=== PATIENT | female | born 1995 | race Caucasian/White ===

== ENCOUNTER 2018-10-24 11:50 | Inpatient (IN) | payer MEDICAID, SELFPAY ==
[2018-10-24 10:35] VITALS: BMI 40.1
--- NOTE | 2018-10-24 12:19 | HP.PCM_ITS ---
- Problem List (1) Active labor at term Status: Acute (2) Abnormal glucose measurement Status: Acute (3) Iron deficiency anemia Status: Acute History Date of Admission: 10/24/18 Final ANGELA: 10/25/18 Gestational age: 39 Weeks and 6 Days History of this : This is a 23 year-old, G 1, P 0, at 39 weeks gestational age who presented to the office this morning with contractions. Traction started this morning around 6 AM and are every 7 minutes and painful. She also noticed brown discharge. No leaking of fluid or bright red bleeding. Good movement. Allergies No Known Allergies Allergy (Verified 10/24/18 10:36) Home Medications: Home Medications Ferrous Sulfate [Iron] 325 mg PO 10/24/18 Vits [Prenatabs FA] 1 tablet PO DAILY 10/24/18 Smoking Status: Never smoker Number of Fetus(es): 1 Heart Tracin/mod zak/+accels/no decels TOCO Analysis: ctx's q 4-5 min History Past Pregnancies: Past Pregnancies Delivery Date Name GA/Weeks Outcome Route Weight Infant Gender Labor Length Anesthesia Delivery Location Provider FOB Labs: GBS neg, GC/CT neg, 1 hr GTT elevated at 147, 3 hr GTT nml, Hgb 11.1, sequential screen neg, syphilis NR, RI, HepB neg, HIV NR, Rh pos Expected Delivery Method: Spontaneous Vaginal Review of Systems Gynecological: Reports: - - +Ctx's and brown discharge. No LOF, BRB. Good FM Physical Exam General: No apparent distress, - - Uncomfortable and breathing through ctx's HEENT: Atraumatic Lungs: - - No increased resp effort Abdomen: Soft, Non Tender, Gravid Extremities:: No edema Neurological: Neuro grossly intact STRIPPER PRELIMINARY: Normal external genitalia Estimated gestational size: Appropriate for gestational size Presentation: Cephalic Cervix Dilation (cm): 3 Station: -2 Effacement (%): 80 Assessment/Plan All Active Problems Active labor at term (Acute) Abnormal glucose measurement (Acute) Iron deficiency anemia (Acute) This is a 23 year-old, G1, P0, at weeks gestational age who is admitted for active labor. - Cvx changed from 1 to /-2 - GBS negative - Pt considering epidural - Routine labs and intrapartum care
[2018-10-24 12:41] LABS: Hematocrit 41.1 % (37-47); Hemoglobin 13.5 g/dl (12.0-15.0); Mean Corp Hgb Conc 32.8 g/gl (32-36); Mean Corpuscular Hgb 27.3 pg (27.0-32.0); Mean Platelet Vol. 10.7 fl (6.2-12.0); Platelet Count 181 K/mm3 (150-450); RBC Distribution Width SD 45.9 fl (35.1-43.9); Red Blood Count 4.95 M/mm3 (4.2-5.4); Scan Indicated on CBC? Y/N NO; White Blood Count 10.7 K/mm3 (4.4-11.0)
[2018-10-24] MEDS: Lactated Ringers 1,000 ML 50 ML IV ×2 (12:45→14:08)
--- NOTE | 2018-10-24 16:20 | PCM.PN.BLA ---
Progress Note Patient was rechecked by RN about 1 hour ago, and remained 2-3cm dilated/unchanged. [place] not picking up ctx's well, but RN reports pt has been sleeping. At bedside to re-assess. Cvx still remains unchanged at this time. FHT reactive and reassuring, and toco w/ ctx's q 5 min apart. Discussed possible early labor with patient. Will d/c home. Reviewed return precautions with patient and she is agreeable to this plan.
--- NOTE | 2018-10-24 16:25 | PN_ITS ---
Progress Note Patient was rechecked by RN about 1 hour ago, and remained 2-3cm dilated/unchanged. [place] not picking up ctx's well, but RN reports pt has been sl eeping. At bedside to re-assess. Cvx still remains unchanged at this time. FHT reactive and reassuring, and toco w/ ctx's q 5 min apart. Discussed possible early labor with patient. Will d/c home. Reviewed return precautions with patient and she is agreeable to this plan.
[2018-10-24] MEDS: Acetaminophen 325 MG Tablet 650 MG PO (16:45)
[2018-10-24] MEDS: Zolpidem Tartrate 5 MG Tablet PO (16:45)
== END 2018-10-24 17:10 | disposition home or self-care (01) | DRG 566 ==
LOC: WPOUT 11:51
PROVIDERS: Admitting Provider Obstetrics & Gynecology; Referring Provider Obstetrics & Gynecology; Visit Provider Obstetrics & Gynecology
DX: O62.9 Abnormality of forces of labor, unspecified (principal); O99.810 Abnormal glucose complicating pregnancy; O99.013 Anemia complicating pregnancy, third trimester; D50.9 Iron deficiency anemia, unspecified; Z3A.39 39 weeks gestation of pregnancy
CPT/HCPCS: 85027; 86850; 86900; J7120

== ENCOUNTER 2018-10-24 20:20 | Outpatient (CLI) | payer MEDICAID, SELFPAY ==
[2018-10-24 10:35] VITALS: BMI 40.1
[2018-10-24 21:16] VITALS: BMI 40.1
[2018-10-24 23:10] VITALS: RESP 18
--- NOTE | 2018-10-25 08:05 | OB.TRI.NOTE ---
- Problem List (1) Uterine contractions Status: Acute History of Present Illness Date of Service: 10/24/18 Was patient seen by the physician?: No Reason For Visit: R/O LABOR Date of Service: 10/24/18 Final ANGELA: 10/25/18 Gestational age: 40 Weeks and 0 Days History of Present Illness: 23 y/o who presented at 39w6d with contractions. No LOF, VB. +FM. Allergies No Known Allergies Allergy (Verified 10/24/18 21:17) Physical Exam Vitals: Vital Signs Resp 18 10/24/18 23:10 NST - FHR Rate Baby A FHR Category:: Category I Uterine Activity:: Ctx's q 3-7 min Impression/Plan 23 y/o who presented at 39w6d with contractions for r/o labor. - Cvx 3.5 cm from 3 cm earlier. After 2 hours cvx remained 3.5 cm - FHT reactive and reassuring - Ctx's were intermittently spacing apart - Pt offered Nubain for pain relief but she declined - Pt likely in early labor. Offered to stay for recheck again in 2 hours or d/c home with return precautions. Pt was discharged home
== END 2018-10-24 23:10 | disposition home or self-care (01) ==
LOC: WPOUT 21:15 → WP 21:15
PROVIDERS: Referring Provider Obstetrics & Gynecology; Visit Provider Obstetrics & Gynecology
DX: Z34.03 Encounter for supervision of normal first pregnancy, third trimester (principal)
CPT/HCPCS: 59025; 59050; 99218; G0378

== ENCOUNTER 2018-10-25 12:17 | Inpatient (IN) | payer MEDICAID, SELFPAY ==
[2018-10-24 21:16] VITALS: BMI 40.1
[2018-10-25 12:39] VITALS: BMI 39.0
[2018-10-25] MEDS: Lactated Ringers 1,000 ML 50 ML IV ×4 (12:55→19:32)
[2018-10-25 13:09] LABS: Absolute Neutrophil Count 11.5 X10^3/uL (2.0-7.7); Eosinophil# 0.01 X10^3/uL; Eosinophils% 0.1 % (0-5); Hematocrit 39.8 % (37-47); Hemoglobin 13.3 g/dl (12.0-15.0); Lymphocyte % 7.6 % (19-41); Mean Corp Hgb Conc 33.4 g/gl (32-36); Mean Corpuscular Hgb 27.7 pg (27.0-32.0); Mean Corpuscular Volume 82.7 fL (81-99); Mean Platelet Vol. 10.3 fl (6.2-12.0); Monocyte# 0.75 X10^3/uL; Monocyte% 5.7 % (0-10); Neutrophil # 11.45 X10^3/uL (2.7-7.7); Neutrophil % 86.4 % (47-70); Platelet Count 173 K/mm3 (150-450); RBC Distribution Width CV 14.8 % (11.6-14.6); RBC Distribution Width SD 44.7 fl (35.1-43.9); Red Blood Count 4.81 M/mm3 (4.2-5.4); White Blood Count 13.2 K/mm3 (4.4-11.0)
[2018-10-25] MEDS: Nalbuphine 10 MG/ML Ampul IV (13:09)
[2018-10-25 13:11] LABS: POSITIVE COUNT NO; POSITIVE DIFFERENTIAL NO; POSITIVE MORPHOLOGY NO
[2018-10-25] MEDS: fentaNYL-bupivacaine (epidural) 100 ML BAG EPIDURAL ×3 (14:08→23:29)
[2018-10-25] MEDS: Mag Hydrox/Al Hydrox/Simeth 30 ML UDC PO (17:33)
[2018-10-25] MEDS: Oxytocin 30 units/NS 500 ml 30 UNITS/500 ML IV.SOLN IV (18:18)
--- NOTE | 2018-10-25 18:20 | PCM.HP.OB ---
History Date of Admission: 10/24/18 Final ANGELA: 10/25/18 Final ANGELA Source: US <20 weeks Gestational age: 40 Weeks and 0 Days History of this : This is a 23 year-old, 1 para 0 at 40 weeks gestation with EDC of 10/25/2018 by first trimester ultrasound alone presents complaining of spontaneous rupture of membranes and contractions. She was in prodromal labor all day yesterday and presented today in labor with spontaneous rupture of membranes. She had no gross vaginal bleeding. She has had good movement. was complicated to date by obesity with maternal BMI of 39, iron deficiency anemia, and she had an abnormal 1 hour glucose tolerance test but she had an normal 3-hour test.. Allergies No Known Allergies Allergy (Verified 10/24/18 21:17) Home Medications: Home Medications Ferrous Sulfate [Iron] 325 mg PO 10/24/18 Vits [Prenatabs FA] 1 tablet PO DAILY 10/24/18 Smoking Status: Former smoker Alcohol: None Number of Fetus(es): 1 Heart Tracing: Normal baseline, minimal to moderate variability. Intermittent accelerations. Some late decelerations. TOCO Analysis: [place] shows irregular contractions History Past Pregnancies: Past Pregnancies Delivery Date Name GA/Weeks Outcome Route Weight Gender Labor Length Anesthesia Delivery Location Provider FOB Expected Infant Delivery Method: Spontaneous Vaginal Review of Systems Constitutional: Denies: Chills, Fever Cardiovascular: Denies: Chest Pain Respiratory: Denies: Cough Gastrointestinal: Denies: Abdominal Pain Skin: Denies: Rash Physical Exam General: Alert, Cooperative, No apparent distress Cardiovascular: Regular rate Lungs: Normal air movement Abdomen: Soft, Non-Distended, Gravid, Appropriate for Gestational Age Extremities:: Other - 1+ edema 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 Estimated weight is less than 4500 g clinically, pelvis clinically adequate to expect vaginal delivery. Patient will receive Pitocin augmentation of labor at this point. Patient has epidural and pain control is adequate at this time..
[2018-10-25] MEDS: Acetaminophen 325 MG Tablet PO (19:33)
--- NOTE | 2018-10-25 21:34 | PCM.PN.BLA ---
Progress Note Patient comfortable but feels pressure w/ ctxs. Temp 100.7 w/ maternal and tachycardia. Will initiate antibiotics. cont. expectant management
[2018-10-25] MEDS: Ondansetron 4 MG/2 ML Vial IV (22:52)
[2018-10-26] VITALS (7 sets, daily range): BP systolic 106–127; BP diastolic 63–74; PULSE 95–125; RESP 16–17; TEMP 36.2–37.9; O2SAT 95
--- NOTE | 2018-10-26 01:42 | PLAC_PTH ---
PATIENT: SHAISTA VANN LOC: [facility] U#:[id number] AGE/SX: 23/ ROOM: [facility]008 RE10/25/[address]: Dr. Doreen Ordaz MD : 1995 BED: 1 DIS: 10/28/2018 SPEC #: [id number] RECD: 10/26/18 02:17 STATUS: TEAGAN KEMAL #: [id number] CODEY: 10/26/18 01:[address]: Doreen Ordaz DEPT: SURGICAL PATHOLOGY RECD BY: Jignesh Webb ENTERED: 10/26/18 08:12 SP TYPE: PLACENTA OTHR DR: No Primary Care Phys Tissues: Placenta, NOS Procedures: Surgery Specimen Level V HEADER OPERATION: Vaginal delivery PRE-OP DIAGNOSIS: Vaginal delivery TISSUE SUBMITTED: Placenta MICROSCOPIC DIAGNOSIS Placenta: Placental disc - third trimester placenta (514 gm). - Focal acute vasculitis of subamniotic blood vessels. - A peripheral area of infarction (2 cm in greatest dimension). - A central area of intraparenchymal hemorrhage (1.5 cm in greatest dimension). Membranes - acute chorioamnionitis. Umbilical cord - three blood vessels and acute funisitis. SJ:syed 10/30/18 MICROSCOPIC DESCRIPTION Slides are reviewed. GROSS DESCRIPTION SPECIMEN: PLACENTA / CLINICAL INFORMATION: A. Weight: 3.759 kg B. Gestational Age: 40 weeks C. Sex: Male PLACENTAL WEIGHT (POST FIXATION): 514 gm PLACENTAL DIMENSIONS: 17 x 17 x 4 cm PLACENTAL SHAPE: Usual ovoid PLACENTAL WEIGHT FOR GESTATIONAL AGE: Within 10-99th percentile MEMBRANES - Present A. Insertion: Marginal B. Site of rupture from edge: 5 cm from edge of placental disc C. Color of membrane: Nguyen-greenish consistent with meconium staining D. Abnormalities: None UMBILICAL CORD - Present A. Color: Nguyen-torres B. Insertion: Paracentral C. Length: 24 cm D. Diameter: 1.5 cm E. Number of vessels: Three F. Abnormalities: None PLACENTAL DISC - Present A. Color of surface: Nguyen-torres B. surface abnormalities: None C. Maternal cotyledons: Intact with minimal tears D. Attached retro placental clot: No clot E. Cut surface: Dark red and spongy F. Lesions: Sections reveal a peripheral nguyen indurated area measuring 2 cm in greatest dimension and one central, nguyen, indurated and hemorrhagic area measuring 1.5 cm in greatest dimension. G. Separate clot: Absent SECTIONS SUBMITTED: 1. Membrane roll 2. Cord, maternal end 3. Cord, end 4. Placental disc, and maternal surfaces, peripheral lesion 5. Placental disc, and maternal surfaces, central lesion 6. Placental disc, and maternal surfaces ASHU:syed 10/27/18 TC:2 CPT: 91536
[2018-10-26] MEDS: Oxytocin 30 units/NS 500 ml 30 UNITS/500 ML IV.SOLN 334 UNITS IV (01:46)
--- NOTE | 2018-10-26 02:06 | OP.PCM_ITS ---
Vaginal Delivery Maternal Presentation: Active Labor Amniotic Membrane Rupture Type: Spontaneous at home Amniotic Fluid Description: Thick meconium - clear, then progressed to Final ANGELA: 10/25/18 Gestational age: 40 Weeks and 1 Days [place] doctor who attended delivery (if requested by OB): Zoraida Hooks Date of Procedure: 10/26/18 Pre-Operative Diagnosis: labor, chorioamnionitis Post-Operative Diagnosis: same Surgery/ Procedure Performed: Spontaneous Vaginal Delivery Type of Anesthesia: Epidural Description of Procedure: A vigorous male was delivered [MAAME] over a first-degree perineal laceration. The remainder the was delivered with maternal pushing and gentle traction only in less than 15 seconds. The Pitocin infusion was initiated for active management of the third stage. The cord was clamped and cut [after 1 minute]. The infant was attended to by the waiting nursing staff. The placenta was delivered spontaneously and intact. The cervix and vagina were intact. The first-degree perineal laceration was repaired with 3-0 Vicryl re peat suture. sponge and needle counts were correct. A vaginal sweep was completed by me. Presentation: MAAME Placental Delivery Description: Spontaneous Placenta Disposition: Sent to Pathology Cord Vessel Description: 3 Vessels Cord Gases drawn per routine: ABG, VBG Cord Entanglement: None Drain: Galvan to straight drain - removed before delivery Estimated Blood Loss: 300 A gender: Male (1 minute): 8 (5 minute): 9 Episiotomy Description: None Laceration: 1st degree - perineal Medications given after delivery: IV Pitocin Complications: None
[2018-10-26] MEDS: Oxytocin 30 units/NS 500 ml 30 UNITS/500 ML IV.SOLN 167 UNITS IV (02:15)
--- NOTE | 2018-10-26 11:02 | NURSING ---
Patient HR 118. Asymptomatic.
[2018-10-26 11:37] LABS: Absolute Lymphocyte Count 1.45 X10^3/ul (0.83-4.51); Absolute Neutrophil Count 17.9 X10^3/uL (2.0-7.7); Basophil# 0.01 X10^3/uL; Differential Indicated SCAN CRITERIA MET; Eosinophil# 0.03 X10^3/uL; Eosinophils% 0.1 % (0-5); Hematocrit 35.6 % (37-47); Hemoglobin 11.7 g/dl (12.0-15.0); Lymphocyte # 1.45 X10^3/ul (4.0); Lymphocyte % 6.8 % (19-41); Mean Corp Hgb Conc 32.9 g/gl (32-36); Mean Corpuscular Hgb 27.5 pg (27.0-32.0); Mean Corpuscular Volume 83.6 fL (81-99); Mean Platelet Vol. 10.1 fl (6.2-12.0); Neutrophil # 17.91 X10^3/uL (2.7-7.7); Neutrophil % 84.8 % (47-70); POSITIVE COUNT NO; POSITIVE DIFFERENTIAL YES; POSITIVE MORPHOLOGY NO; Platelet Count 179 K/mm3 (150-450); RBC Distribution Width CV 15.1 % (11.6-14.6); RBC Distribution Width SD 46.1 fl (35.1-43.9); Red Blood Count 4.26 M/mm3 (4.2-5.4); White Blood Count 21.2 K/mm3 (4.4-11.0)
[2018-10-26 12:11] LABS: Differential Comment SCANNED
[2018-10-26] MEDS: Acetaminophen 500 MG Tablet 1000 MG PO (12:27)
[2018-10-26] MEDS: Senna/Docusate Sodium 1 Tablet PO (12:27)
[2018-10-26] MEDS: 0.9% Saline Lock 10 ML Syringe IV ×3 (13:46→22:30)
[2018-10-26] MEDS: Naproxen 250 MG Tablet PO (18:28)
[2018-10-27 02:53] VITALS: BP 115/68; PULSE 82; RESP 16; TEMP 36.1; O2SAT 98
[2018-10-27] MEDS: 0.9% Saline Lock 10 ML Syringe IV (06:05)
[2018-10-27 07:59] VITALS: BP 113/74; PULSE 88; RESP 16; TEMP 36.1; O2SAT 95
--- NOTE | 2018-10-27 08:09 | PN.OBGYN_ITS ---
Subjective: Patient is doing well this morning. Tolerating regular diet without nausea or vomiting. Ambulating and voiding without difficulty. Denies lightheadedness, dizziness, chest pain, shortness of breath, leg pain. Denies any fevers or chills. Breast-feeding with some difficulty, seen. - Physical Exam General: Alert, - - NAD, comfortable HEENT: Atraumatic Lungs: - - No increased resp effort Abdomen: Soft, - - ATTP, FF@U-1 Extremities: No Calf Tenderness Skin: No rashes Neurological: Neuro grossly intact Psych/Mental Status: Normal Affect, Appropriate Vital Signs Temp Pulse Resp BP Pulse Ox 96.9 F L 88 16 113/74 95 10/27/18 07:59 10/27/18 07:59 10/27/18 07:59 10/27/18 07:59 10/27/18 07:59 Oxygen Delivery Method Room Air Weight: 213 lb 6.4 oz Body Mass Index (BMI) 39.0 Intake and Output for Last 24 Hours 10/25/18 10/26/18 10/27/18 23:59 23:59 23:59 Intake Total 800 / 800 1770 / 1770 Output Total 300 / 300 700 / 700 Balance 500 / 500 1070 / 1070 Laboratory Tests Past 24 Hrs 10/26/18 11:30 WBC 21.2 H RBC 4.26 Hgb 11.7 L Hct 35.6 L MCV 83.6 MCH 27.5 MCHC 32.9 RDW 15.1 H RDW Differential 46.1 H Plt Count 179 MPV 10.1 Immature Gran % (Auto) 0.300 Neut % (Auto) 84.8 H Lymph % (Auto) 6.8 L [place] % (Auto) 8.0 Eos % (Auto) 0.1 Baso % (Auto) 0.0 Absolute Neuts (auto) 17.9 H Absolute Lymphs (auto) 1.45 Total Counted Not Reportable Differential Comment SCANNED Medical Necessity - Tobacco Use Smoking Status: Former smoker Assessment/Plan All Active Problems Active labor at term (Acute) Abnormal glucose measurement (Acute) Iron deficiency anemia (Acute) Uterine contractions (Acute) day #1 s/p - Doing well - Remains afebrile. No significant fundal tenderness on exam. Has been on Unasyn for 24 hrs, will d/c and continue to monitor - with some difficulty, seeing - Dispo: Routine care. Anticipate d/c home tomorrow
[2018-10-27 09:35] LABS: Absolute Lymphocyte Count 2.03 X10^3/ul (0.83-4.51); Absolute Neutrophil Count 10.2 X10^3/uL (2.0-7.7); Basophil# 0.01 X10^3/uL; Basophil% 0.1 % (0-1); Eosinophil# 0.13 X10^3/uL; Hematocrit 35.8 % (37-47); Hemoglobin 11.6 g/dl (12.0-15.0); Lymphocyte # 2.03 X10^3/ul (4.0); Lymphocyte % 15.3 % (19-41); Mean Corp Hgb Conc 32.4 g/gl (32-36); Mean Corpuscular Hgb 27.4 pg (27.0-32.0); Mean Corpuscular Volume 84.4 fL (81-99); Mean Platelet Vol. 9.9 fl (6.2-12.0); Monocyte# 0.84 X10^3/uL; Monocyte% 6.3 % (0-10); Neutrophil # 10.18 X10^3/uL (2.7-7.7); Platelet Count 178 K/mm3 (150-450); RBC Distribution Width CV 15.3 % (11.6-14.6); RBC Distribution Width SD 47.6 fl (35.1-43.9); Red Blood Count 4.24 M/mm3 (4.2-5.4); White Blood Count 13.2 K/mm3 (4.4-11.0)
[2018-10-27 09:36] LABS: POSITIVE COUNT NO; POSITIVE DIFFERENTIAL NO; POSITIVE MORPHOLOGY NO
[2018-10-27 13:53] VITALS: BP 122/88; PULSE 106; RESP 16; TEMP 36.8; O2SAT 95
[2018-10-27 19:50] VITALS: BP 126/78; PULSE 95; RESP 16; TEMP 36.5; O2SAT 94
[2018-10-27] MEDS: Naproxen 250 MG Tablet PO (19:56)
[2018-10-28 01:41] VITALS: BP 121/72; PULSE 91; RESP 16; TEMP 31; O2SAT 96
[2018-10-28 08:30] VITALS: BP 124/82; PULSE 85; RESP 18; TEMP 36.6; O2SAT 95
--- NOTE | 2018-10-28 09:51 | PCM.PN.OB ---
Subjective: No complaints - Physical Exam General: Alert, Oriented x3 Abdomen: Soft, Non Tender, Non-Distended - ff mid & below umb Extremities: No Calf Tenderness Vital Signs Temp Pulse Resp BP Pulse Ox 87.8 F L 91 16 121/72 H 96 10/28/18 01:41 10/28/18 01:41 10/28/18 01:41 10/28/18 01:41 10/28/18 01:41 Oxygen Delivery Method Room Air Weight: 213 lb 6.4 oz Body Mass Index (BMI) 39.0 Intake and Output for Last 24 Hours 10/26/18 10/27/18 10/28/18 23:59 23:59 23:59 Intake Total 1770 / 1770 Output Total 700 / 700 Balance 1070 / 1070 Medical Necessity - Tobacco Use Smoking Status: Former smoker Assessment/Plan All Active Problems Active labor at term (Acute) Abnormal glucose measurement (Acute) Iron deficiency anemia (Acute) Uterine contractions (Acute) PPD#2 D/c home ID - AF, no signs/symptoms infection
--- NOTE | 2018-10-28 09:52 | DCINST_ITS ---
Discharge Diet: No Restrictions Discharge Activity: May Drive, May Shower May resume sexual activity in: 4-6 weeks Weight Bearing Status: Weight bearing as tolerated Additional Instructions: If you experience any of the following, contact your healthcare provider. * Bleeding that soaks a pad every hour for 2 hours * Fever 100.4 or higher * Unrelieved incision or abdominal pain * Swelling, redness, discharge or bleeding from your incision or episiotomy site * Your incision begins to separate * Problems urinating (including inability to urinate or burning while urinating). * Visual changes * Severe headache * Flu-like symptoms * Pain or redness in one of both of your breasts * Pain, warmth, tenderness or swelling in your legs, especially the calf area * Frequent nausea and vomiting * Symptoms of depression or anxiety If you experience any of the following, call 911 or go to the nearest Emergency Room. * Chest pain * Problems breathing * Seizure activity * Partial or complete paralysis of a body part, slurred speech, weakness or drooping of the face, or a sudden inability to walk or hold your balance Allergies/Adverse Reactions: Allergies No Known Allergies Allergy (Verified 10/24/18 21:17) Medications to take at Discharge Vits [Prenatabs FA ] 1 tablet PO DAILY 10/24/18 Primary Care Physician: Care Physician,No Primary [Primary Care Provider] - Test Results: Test results from this visit will be discussed in further detail at your follow- up appointment, if applicable.
--- NOTE | 2018-10-28 09:52 | PCM.DCVAG ---
Discharge Diet: No Restrictions Discharge Activity: May Drive, May Shower May resume sexual activity in: 4-6 weeks Weight Bearing Status: Weight bearing as tolerated Additional Instructions: If you experience any of the following, contact your healthcare provider. Bleeding that soaks a pad every hour for 2 hours Fever 100.4 or higher Unrelieved incision or abdominal pain Swelling, redness, discharge or bleeding from your incision or episiotomy site Your incision begins to separate Problems urinating (including inability to urinate or burning while urinating). Visual changes Severe headache Flu-like symptoms Pain or redness in one of both of your breasts Pain, warmth, tenderness or swelling in your legs, especially the calf area Frequent nausea and vomiting Symptoms of depression or anxiety If you experience any of the following, call 911 or go to the nearest Emergency Room. Chest pain Problems breathing Seizure activity Partial or complete paralysis of a body part, slurred speech, weakness or drooping of the face, or a sudden inability to walk or hold your balance Allergies/Adverse Reactions: Allergies No Known Allergies Allergy (Verified 10/24/18 21:17) Medications to take at Discharge Vits [Prenatabs FA ] 1 tablet PO DAILY 10/24/18 Primary Care Physician: Care Physician,No Primary [Primary Care Provider] - Test Results: Test results from this visit will be discussed in further detail at your follow-up appointment, if applicable.
[2018-10-28] MEDS: Senna/Docusate Sodium 1 Tablet PO (09:54)
[2018-10-28 12:30] VITALS: BP 122/80; PULSE 78; RESP 20; TEMP 36.2; O2SAT 97
[2018-10-30 15:26] LABS: Pathology Specimen OB SEE PATHOLOGY REPORT
== END 2018-10-28 13:00 | disposition home or self-care (01) | DRG 560 ==
PROVIDERS: Admitting Provider Obstetrics & Gynecology; Referring Provider Obstetrics & Gynecology; Visit Provider Obstetrics & Gynecology
DX: O99.02 Anemia complicating childbirth (principal); D50.9 Iron deficiency anemia, unspecified; O76 Abnormality in fetal heart rate and rhythm complicating labor and delivery; O99.814 Abnormal glucose complicating childbirth; O41.1230 Chorioamnionitis, third trimester, not applicable or unspecified; O70.0 First degree perineal laceration during delivery; O77.0 Labor and delivery complicated by meconium in amniotic fluid; O99.214 Obesity complicating childbirth; E66.9 Obesity, unspecified; Z87.891 Personal history of nicotine dependence; Z3A.40 40 weeks gestation of pregnancy; Z37.0 Single live birth
CPT/HCPCS: 59025; 59050; 85025; 85027; 86850; 86900; 88307; 99218; J7120; A4216; G0378; J0290; J0295; J2405; J3490

== ENCOUNTER → 2021-05-08 15:43 | Outpatient (CLI) | payer MEDICAID, SELFPAY ==
[2021-05-08 17:24] LABS: hCG Titer Quant., Serum 28405 mIU/mL (1-3)
== END ==
PROVIDERS: PCP Student in an Organized Health Care Education/Training Program; Visit Provider Obstetrics & Gynecology
DX: N91.2 Amenorrhea, unspecified (principal)
CPT/HCPCS: 36415; 84702

== ENCOUNTER → 2021-05-13 17:24 | Outpatient (CLI) | payer MEDICAID, SELFPAY ==
--- NOTE | 2021-05-13 17:28 | US_ITS ---
STUDY: FIRST TRIMESTER OBSTETRICAL ULTRASOUND REASON FOR EXAM: Female, 26 years old DATING LMP: 03/26/2021 TECHNIQUE: Transvaginal TECHNICAL QUALITY: Adequate. PRIOR ULTRASOUND: None. FINDINGS: There is visualization of a single gestational sac in a normal intrauterine position. The mean sac diameter (MSD) measures 24 mm, indicating an estimated gestational age (EGA) of 7 weeks, 3 days. The gestational sac shape is within normal limits. There is a visualized yolk sac. The yolk sac measures 3 mm. The placenta is non-visualized. There is visualization of a live embryo. The crown-rump length (CRL) measures 9 mm, indicating an estimated gestational age (EGA) of 7 weeks, 0 days. There is demonstrated cardiac activity with a heart rate of 152 bpm. The estimated gestation age (EGA) by LMP is 7 weeks, 0 days. The estimated date of delivery (ANGELA) by LMP is . The estimated gestation age (EGA) by US is 7 weeks, 1 days. The estimated date of delivery (ANGELA) by US is . The uterus measures 10.6 x 6.3 x 9.3. There is no demonstrated uterine fibroid. The cervix is closed. The right ovary measures 2.2 x 1.3 x 1.8 cm. There is no right ovarian cyst. There is no visualized right adnexal mass or complex lesion. The left ovary measures 3.4 x 1.8 x 2.8 cm. There is no left ovarian cyst. There is no visualized left adnexal mass or complex lesion. There is no fluid in the cul de sac. US/Transvaginal w/Preg US IMPRESSION: Living intrauterine of 7 weeks 1 day as described above. Electronically Signed: Carroll Vega MD at 14:48 EDT Tel , Service support ,
== END ==
PROVIDERS: PCP Student in an Organized Health Care Education/Training Program; Referring Provider Obstetrics & Gynecology; Visit Provider Obstetrics & Gynecology
DX: Z34.90 Encounter for supervision of normal pregnancy, unspecified, unspecified trimester (principal)
CPT/HCPCS: 76817

== ENCOUNTER → 2021-05-19 17:25 | Outpatient (CLI) | payer MEDICAID, SELFPAY ==
[2021-05-19 15:33] VITALS: BMI 39.0
[2021-05-19 17:57] LABS: Amphetamine Urine VISTA NEGATIVE (<1000 ng/mL); Barbiturate Urine VISTA NEGATIVE (< 200 ng/mL); Benzodiazepine Urine VISTA NEGATIVE (< 200 ng/mL); Cocaine Urine VISTA NEGATIVE (< 300 ng/mL); Ecstacy Urine VISTA NEGATIVE (< 500 ng/mL); Methadone Urine VISTA NEGATIVE (< 300 ng/mL); PCP Urine VISTA NEGATIVE (< 25 ng/mL); THC Urine VISTA NEGATIVE (< 50 ng/mL); Vista UDS pH Range 5
[2021-05-22 03:07] LABS: Chlamydia By Nucleic Acid AMP Negative (Negative)
[2021-05-22 10:40] LABS: Gonococcus By Nucleic Acid AMP Negative (Negative)
[2021-05-22 12:45] LABS: HPV Reflexed? NOT INDICATED
== END ==
PROVIDERS: PCP Student in an Organized Health Care Education/Training Program; Referring Provider Obstetrics & Gynecology; Visit Provider Obstetrics & Gynecology
DX: Z34.90 Encounter for supervision of normal pregnancy, unspecified, unspecified trimester (principal)
CPT/HCPCS: 80307; 87086; 87088; 87491; 87591; 88175; G0145

== ENCOUNTER → 2021-06-04 14:22 | Outpatient (CLI) | payer MEDICAID, SELFPAY ==
[2021-05-19 15:33] VITALS: BMI 39.0
[2021-06-04] MEDS: 0.9% NaCl Peripheral Flush Adult/Peds IV (14:42)
[2021-06-04 14:48] VITALS: BP 113/67; PULSE 84; RESP 16; TEMP 36.3; O2SAT 100; BMI 33.8
[2021-06-04] MEDS: Dextrose 5%-Lactated Ringers 1,000 ML 999 ML IV (14:53)
[2021-06-04] MEDS: Ondansetron 4 MG/2 ML Vial IV (14:53)
[2021-06-04 16:10] VITALS: BP 112/65; PULSE 71; RESP 16; TEMP 36.7
== END ==
PROVIDERS: PCP Student in an Organized Health Care Education/Training Program; Referring Provider Obstetrics & Gynecology; Visit Provider Obstetrics & Gynecology
DX: E86.0 Dehydration (principal)
CPT/HCPCS: 96365; 96366; 96375; A4216; J2405

== ENCOUNTER → 2021-06-15 09:02 | Outpatient (CLI) | payer MEDICAID, SELFPAY ==
[2021-06-04 14:48] VITALS: BMI 33.8
[2021-06-15 09:31] LABS: Absolute Lymphocyte Count 1.24 X10^3/uL (0.83-4.51); Absolute Neutrophil Count 4.5 X10^3/uL (2.0-7.7); Basophil# 0.01 X10^3/uL; Basophil% 0.2 % (0-1); Eosinophil# 0.06 X10^3/uL; Hematocrit 38.5 % (37-47); Hemoglobin 11.9 g/dL (12.0-15.0); Lymphocyte # 1.24 X10^3/ul (0.83-4.51); Mean Corp Hgb Conc 30.9 g/dL (32-36); Mean Corpuscular Hgb 23.9 pg (27.0-32.0); Mean Corpuscular Volume 77.5 fL (81-99); Mean Platelet Vol. 10.6 fl (6.2-12.0); Monocyte# 0.41 X10^3/uL; Monocyte% 6.6 % (0-10); NRBC Flagged by Analyzer 0 % (0-5); Neutrophil # 4.47 X10^3/uL (2.7-7.7); Neutrophil % 71.9 % (47-70); Platelet Count 221 K/mm3 (150-450); RBC Distribution Width CV 15.1 % (11.6-14.6); RBC Distribution Width SD 42.3 fl (35.1-43.9); Red Blood Count 4.97 M/mm3 (4.2-5.4); White Blood Count 6.2 K/mm3 (4.4-11.0)
[2021-06-15 09:48] LABS: Glucose Challenge Gest 1H 50g 134 mg/dL (70-140)
[2021-06-15 10:31] LABS: HIV - WCH Non-Reactive (Nonreactive); Hepatitis B Surface Antigen Non-Reactive (Nonreactive); Hepatitis C Antibody Non-Reactive (Nonreactive); Rubella IgG Reactive (Nonreactive); Syphilis Antibodies Non-reactive
== END ==
PROVIDERS: PCP Student in an Organized Health Care Education/Training Program; Referring Provider Obstetrics & Gynecology; Visit Provider Obstetrics & Gynecology
DX: Z34.90 Encounter for supervision of normal pregnancy, unspecified, unspecified trimester (principal)
CPT/HCPCS: 36415; 82950; 85025; 86703; 86762; 86780; 86803; 86850; 86900; 86901; 87340

== ENCOUNTER → 2021-06-19 16:38 | Outpatient (CLI) | payer MEDICAID, SELFPAY ==
[2021-06-19 15:13] VITALS: BMI 33.8
[2021-06-19 18:11] LABS: NATERA MAILED SPECIMEN
== END ==
PROVIDERS: PCP Student in an Organized Health Care Education/Training Program; Visit Provider Obstetrics & Gynecology
DX: E86.0 Dehydration (principal)
CPT/HCPCS: 36415

== ENCOUNTER → 2021-07-17 13:21 | Outpatient (CLI) | payer MEDICAID, SELFPAY ==
[2021-06-19 15:13] VITALS: BMI 33.8
--- NOTE | 2021-07-17 13:22 | US_ITS ---
STUDY: ULTRASOUND BREAST - LEFT REASON FOR EXAM: Female, 26 years old. Palpable lump left breast. Patient is 16 weeks . TECHNIQUE: Axial and longitudinal images of the LEFT breast were performed with a high resolution ultrasound transducer. # OF IMAGES: 26 COMPARISON: None. FINDINGS: LEFT Breast: The lateral half of the left breast was examined by ultrasound. No solid or cystic mass lesion is seen. There is dense fibroglandular tissue. US/Breast Limited Unilateral IMPRESSION: No sonographic and amount is seen. Dense fibroglandular tissue. ASSESSMENT CATEGORY: BIRADS Category 1: Negative. A letter regarding these results will be sent to the patient by the facility within 30 days. Electronically Signed: Brenden Pepe MD at 14:18 EDT , Service support ,
== END ==
PROVIDERS: PCP Student in an Organized Health Care Education/Training Program; Referring Provider Obstetrics & Gynecology; Visit Provider Obstetrics & Gynecology
DX: N63.20 Unspecified lump in the left breast, unspecified quadrant (principal)
CPT/HCPCS: 76642

== ENCOUNTER → 2021-08-17 08:20 | Outpatient (CLI) | payer MEDICAID, SELFPAY ==
--- NOTE | 2021-08-17 08:23 | US_ITS ---
STUDY: SECOND AND THIRD TRIMESTER OBSTETRICAL ULTRASOUND REASON FOR EXAM: Female, 26 years old anatomy LMP: 03/24/2021. TECHNIQUE: Transabdominal and Transvaginal TECHNICAL QUALITY: Adequate. PRIOR ULTRASOUND: Comparison is made with prior examination dated 05/13/2021. FINDINGS: There is a single intrauterine fetus. The fetus is in an transverse lie with the head on the maternal left side. There is demonstrated cardiac activity with a heart rate of 136 bpm. There is a normal amniotic fluid volume. The largest amniotic fluid pocket measures 6.6 cm x 3.6 cm. The amniotic fluid index (GERARDO) is within normal limits. The placenta is posterior in location and is not low lying. There are Grade 0 placental changes. The cervix measures 5.0 cm in length. The bilateral adnexal regions are normal. BIOMETRY: BPD: 4.55 cm: 19 weeks, 5 days HC: 17.5 cm: 20 weeks, 0 days AC: 16.13 cm: 21 weeks, 1 days FL: 3.23 cm: 20 weeks, 0 days CI: 74% FL/BPD: 71% FL/HC: FL/AC: 20% HC/AC: 1.09 age by current US: 20 weeks, 0 days. ANGELA by current US: 01/04/2022. Estimated weight: 365 grams, +/- 55 grams, 32 %. age by prior US: 20 weeks, 6 days. ANGELA by prior US: 12/29/2021. Age by LMP: 20 weeks, 6 days. ANGELA by LMP: 12/29/2021. ANATOMY: Gender: Female Cranium: Normal lateral ventricles. Normal choroid plexus. Normal cerebellum. Normal cisterna magna. Normal face, nose and lips. Chest: Normal 4-chamber heart. Abdomen/Pelvis: Normal diaphragm. Normal stomach. Normal abdominal wall. Normal cord insertion. Normal 3 vessel cord. Normal kidneys. Normal bladder. Spine: Normal cervical spine. Normal thoracic spine. Normal lumbar spine. Normal sacrum. Extremities: Normal bilateral upper extremities. Normal bilateral lower extremities. IMPRESSION: Single live intrauterine gestation with a mean gestational age of 20 weeks and 6 days. The measurements obtained today fall within normal expected range. Electronically Signed: Brenden Pepe MD at 10:42 EDT , Service support , STUDY: FIRST TRIMESTER OBSTETRICAL ULTRASOUND REASON FOR EXAM: Female, 26 years old . Cervical length. LMP: 03/24/2021. TECHNIQUE: Transvaginal TECHNICAL QUALITY: Adequate. PRIOR ULTRASOUND: None. FINDINGS: Transvaginal imaging for cervical length measurement. The cervical length measures 5 cm. US/Transvaginal w/Preg US IMPRESSION: Cervical length measures 5 cm. Electronically Signed: Brenden Pepe MD at 10:43 EDT , Service support ,
--- NOTE | 2021-08-17 08:23 | US_ITS ---
STUDY: SECOND AND THIRD TRIMESTER OBSTETRICAL ULTRASOUND REASON FOR EXAM: Female, 26 years old anatomy LMP: 03/24/2021. TECHNIQUE: Transabdominal and Transvaginal TECHNICAL QUALITY: Adequate. PRIOR ULTRASOUND: Comparison is made with prior examination dated 05/13/2021. FINDINGS: There is a single intrauterine fetus. The fetus is in an transverse lie with the head on the maternal left side. There is demonstrated cardiac activity with a heart rate of 136 bpm. There is a normal amniotic fluid volume. The largest amniotic fluid pocket measures 6.6 cm x 3.6 cm. The amniotic fluid index (GERARDO) is within normal limits. The placenta is posterior in location and is not low lying. There are Grade 0 placental changes. The cervix measures 5.0 cm in length. The bilateral adnexal regions are normal. BIOMETRY: BPD: 4.55 cm: 19 weeks, 5 days HC: 17.5 cm: 20 weeks, 0 days AC: 16.13 cm: 21 weeks, 1 days FL: 3.23 cm: 20 weeks, 0 days CI: 74% FL/BPD: 71% FL/HC: FL/AC: 20% HC/AC: 1.09 age by current US: 20 weeks, 0 days. ANGELA by current US: 01/04/2022. Estimated weight: 365 grams, +/- 55 grams, 32 %. age by prior US: 20 weeks, 6 days. ANGELA by prior US: 12/29/2021. Age by LMP: 20 weeks, 6 days. ANGELA by LMP: 12/29/2021. ANATOMY: Gender: Female Cranium: Normal lateral ventricles. Normal choroid plexus. Normal cerebellum. Normal cisterna magna. Normal face, nose and lips. Chest: Normal 4-chamber heart. Abdomen/Pelvis: Normal diaphragm. Normal stomach. Normal abdominal wall. Normal cord insertion. Normal 3 vessel cord. Normal kidneys. Normal bladder. Spine: Normal cervical spine. Normal thoracic spine. Normal lumbar spine. Normal sacrum. Extremities: Normal bilateral upper extremities. Normal bilateral lower extremities. IMPRESSION: Single live intrauterine gestation with a mean gestational age of 20 weeks and 6 days. The measurements obtained today fall within normal expected range. Electronically Signed: Brenden Pepe MD at 10:42 EDT , Service support , STUDY: FIRST TRIMESTER OBSTETRICAL ULTRASOUND REASON FOR EXAM: Female, 26 years old . Cervical length. LMP: 03/24/2021. TECHNIQUE: Transvaginal TECHNICAL QUALITY: Adequate. PRIOR ULTRASOUND: None. FINDINGS: Transvaginal imaging for cervical length measurement. The cervical length measures 5 cm. US/OB Anatomy Scan IMPRESSION: Cervical length measures 5 cm. Electronically Signed: Brenden Pepe MD at 10:43 EDT , Service support ,
== END ==
PROVIDERS: PCP Student in an Organized Health Care Education/Training Program; Referring Provider Obstetrics & Gynecology; Visit Provider Obstetrics & Gynecology
DX: O09.90 Supervision of high risk pregnancy, unspecified, unspecified trimester (principal); Z3A.00 Weeks of gestation of pregnancy not specified
CPT/HCPCS: 76805; 76817

== ENCOUNTER → 2021-10-08 11:33 | Outpatient (CLI) | payer MEDICAID, SELFPAY ==
[2021-10-08 12:36] LABS: Absolute Lymphocyte Count 1.72 X10^3/uL (0.83-4.51); Absolute Neutrophil Count 6.8 X10^3/uL (2.0-7.7); Basophil# 0.01 X10^3/uL; Basophil% 0.1 % (0-1); Eosinophil# 0.09 X10^3/uL; Hematocrit 30.8 % (37-47); Hemoglobin 9.4 g/dL (12.0-15.0); Lymphocyte # 1.72 X10^3/ul (0.83-4.51); Lymphocyte % 18.8 % (19-41); Mean Corp Hgb Conc 30.5 g/dL (32-36); Mean Corpuscular Hgb 23.1 pg (27.0-32.0); Mean Corpuscular Volume 75.7 fL (81-99); Mean Platelet Vol. 10.9 fl (6.2-12.0); Monocyte# 0.46 X10^3/uL; NRBC Flagged by Analyzer 0 % (0-5); Neutrophil # 6.83 X10^3/uL (2.7-7.7); Neutrophil % 74.4 % (47-70); Platelet Count 243 K/mm3 (150-450); RBC Distribution Width CV 14.2 % (11.6-14.6); RBC Distribution Width SD 38.7 fl (35.1-43.9); Red Blood Count 4.07 M/mm3 (4.2-5.4); White Blood Count 9.2 K/mm3 (4.4-11.0)
[2021-10-08 12:52] LABS: Glucose Challenge Gest 1H 50g 149 mg/dL (70-140)
== END ==
PROVIDERS: PCP Student in an Organized Health Care Education/Training Program; Visit Provider Obstetrics & Gynecology
DX: Z13.1 Encounter for screening for diabetes mellitus (principal)
CPT/HCPCS: 36415; 82950; 85025

== ENCOUNTER → 2021-10-22 07:00 | Outpatient (CLI) | payer MEDICAID, SELFPAY ==
[2021-10-22 08:21] LABS: Glucose GTT-Gestation. Fasting 92 mg/dL (<105)
[2021-10-22 09:26] LABS: Glucose GTT-Gestational 1 Hr 168 mg/dL (<190)
[2021-10-22 10:30] LABS: Glucose GTT-Gestational 2 Hr 116 mg/dL (<165)
[2021-10-22 11:00] LABS: Glucose GTT-Gestational 3 Hr 114 L (<145)
== END ==
PROVIDERS: PCP Student in an Organized Health Care Education/Training Program; Referring Provider Obstetrics & Gynecology; Visit Provider Obstetrics & Gynecology
DX: Z13.1 Encounter for screening for diabetes mellitus (principal)
CPT/HCPCS: 36415; 82951; 82952

== ENCOUNTER → 2021-11-18 14:58 | Outpatient (CLI) | payer MEDICAID, SELFPAY ==
[2021-11-18 15:08] LABS: Absolute Lymphocyte Count 1.63 X10^3/uL (0.83-4.51); Absolute Neutrophil Count 8.3 X10^3/uL (2.0-7.7); Basophil# 0.02 X10^3/uL; Basophil% 0.2 % (0-1); Eosinophil# 0.06 X10^3/uL; Eosinophils% 0.6 % (0-5); Hematocrit 32.3 % (37-47); Hemoglobin 9.9 g/dL (12.0-15.0); Lymphocyte # 1.63 X10^3/ul (0.83-4.51); Lymphocyte % 15.3 % (19-41); Mean Corp Hgb Conc 30.7 g/dL (32-36); Mean Corpuscular Hgb 22.3 pg (27.0-32.0); Mean Corpuscular Volume 72.9 fL (81-99); Mean Platelet Vol. 10.9 fl (6.2-12.0); Monocyte# 0.59 X10^3/uL; Monocyte% 5.5 % (0-10); NRBC Flagged by Analyzer 0 % (0-5); Neutrophil # 8.28 X10^3/uL (2.7-7.7); Neutrophil % 77.8 % (47-70); Platelet Count 279 K/mm3 (150-450); RBC Distribution Width CV 15.5 % (11.6-14.6); RBC Distribution Width SD 40.2 fl (35.1-43.9); Red Blood Count 4.43 M/mm3 (4.2-5.4); White Blood Count 10.6 K/mm3 (4.4-11.0)
== END ==
PROVIDERS: PCP Student in an Organized Health Care Education/Training Program; Referring Provider Nurse Practitioner Women's Health; Visit Provider Nurse Practitioner Women's Health
DX: O99.019 Anemia complicating pregnancy, unspecified trimester (principal); D64.9 Anemia, unspecified; Z3A.00 Weeks of gestation of pregnancy not specified
CPT/HCPCS: 36415; 85025

== ENCOUNTER 2021-12-04 10:58 | Outpatient (CLI) | payer MEDICAID, SELFPAY ==
[2021-12-04 11:11] VITALS: BP 107/64; PULSE 130; RESP 16; TEMP 36.2; O2SAT 96; BMI 37.8
[2021-12-04] MEDS: 0.9% NaCl Peripheral Flush Adult/Peds IV (11:19)
[2021-12-04] MEDS: 0.9% NaCl IVPB Med Flush (250 mL) 15 ML IV (11:34)
[2021-12-04 14:03] VITALS: BP 114/70; PULSE 95; RESP 16; TEMP 35.7; O2SAT 98
== END 2021-12-04 23:59 | disposition short-term general hospital (02) ==
PROVIDERS: PCP Student in an Organized Health Care Education/Training Program; Referring Provider Obstetrics & Gynecology; Visit Provider Nurse Practitioner Women's Health
DX: O99.019 Anemia complicating pregnancy, unspecified trimester (principal); D64.9 Anemia, unspecified; Z3A.00 Weeks of gestation of pregnancy not specified
CPT/HCPCS: 96365; 96366; 87081; J1756; J7050; A4216

== ENCOUNTER 2021-12-08 14:04 | Outpatient (CLI) | payer MEDICAID, SELFPAY ==
--- NOTE | 2021-12-08 14:06 | US_ITS ---
STUDY: SECOND AND THIRD TRIMESTER OBSTETRICAL ULTRASOUND REASON FOR EXAM: Female, 26 years old growth LMP: 04/13/2021. TECHNIQUE: Transabdominal TECHNICAL QUALITY: Adequate. PRIOR ULTRASOUND: None. FINDINGS: There is a single intrauterine fetus. The fetus is in a cephalic presentation. There is demonstrated cardiac activity with a heart rate of 152 bpm. There is a normal amniotic fluid volume. The largest amniotic fluid pocket measures 5.6 cm. The amniotic fluid index (GERARDO) is 13.0 cm. The placenta is fundal in location. There are Grade 2 placental changes. The cervix was unable to be measured due to the head positioning. The adnexal regions are not visualized. BIOMETRY: BPD: 8.7 cm: 34 weeks, 6 days HC: 31.4 cm: 35 weeks, 1 days AC: 34.2 cm: 38 weeks, 0 days FL: 7.1 cm: 37 weeks, 3 days CI: 80% FL/BPD: 82% FL/HC: FL/AC: 21% HC/AC: 0.92 age by current US: 35 weeks, 5 days. ANGELA by current US: 01/07/2022. Estimated weight: 3161 grams, +/- 474 grams, 63 %. age by prior US: 36 weeks, 1 days. ANGELA by prior US: 01/04/2022. Age by LMP: 37 weeks, 0 days. ANGELA by LMP: 12/29/2021. US/OB Limited With Biometrics IMPRESSION: Single live intrauterine gestation with a mean gestational age of 36 weeks and 1 day. The measurements obtained today following within the normal expected range. Electronically Signed: Brenden Pepe MD at 12:29 EST , Service support ,
== END 2021-12-08 23:59 | disposition short-term general hospital (02) ==
LOC: OPUS 14:05
PROVIDERS: PCP Student in an Organized Health Care Education/Training Program; Visit Provider Obstetrics & Gynecology
DX: U07.1 COVID-19 (principal)
CPT/HCPCS: 76816

== ENCOUNTER 2021-12-11 09:50 | Outpatient (CLI) | payer MEDICAID, SELFPAY ==
[2021-12-11] MEDS: 0.9% NaCl Peripheral Flush Adult/Peds IV (10:27)
[2021-12-11] MEDS: 0.9% NaCl IVPB Med Flush (250 mL) 15 ML IV (10:27)
[2021-12-11 10:36] VITALS: BP 112/62; PULSE 88; RESP 16; TEMP 36.3; O2SAT 98
[2021-12-11 12:32] VITALS: BP 116/64; PULSE 89; RESP 16; O2SAT 100
== END 2021-12-11 23:59 | disposition short-term general hospital (02) ==
LOC: MEDOUTP 09:50
PROVIDERS: PCP Student in an Organized Health Care Education/Training Program; Referring Provider Nurse Practitioner Women's Health; Visit Provider Nurse Practitioner Women's Health
DX: O99.019 Anemia complicating pregnancy, unspecified trimester (principal); D64.9 Anemia, unspecified; Z3A.00 Weeks of gestation of pregnancy not specified
CPT/HCPCS: 96365; 96366; J1756; J7050; A4216

== ENCOUNTER 2021-12-18 09:59 | Outpatient (CLI) | payer MEDICAID, SELFPAY ==
[2021-12-18] MEDS: 0.9% NaCl IVPB Med Flush (250 mL) 15 ML IV (10:53)
[2021-12-18 10:56] VITALS: BP 106/70; PULSE 77; RESP 16; TEMP 35.8; O2SAT 94
[2021-12-18] MEDS: 0.9% NaCl Peripheral Flush Adult/Peds IV (10:56)
[2021-12-18 12:39] VITALS: BP 115/60; PULSE 80; RESP 16; TEMP 35.9; O2SAT 100
== END 2021-12-18 23:59 | disposition short-term general hospital (02) ==
LOC: MEDOUTP 09:59
PROVIDERS: PCP Student in an Organized Health Care Education/Training Program; Referring Provider Nurse Practitioner Women's Health; Visit Provider Nurse Practitioner Women's Health
DX: O99.019 Anemia complicating pregnancy, unspecified trimester (principal); Z3A.00 Weeks of gestation of pregnancy not specified
CPT/HCPCS: 96365; 96366; J1756; J7050; A4216

== ENCOUNTER 2022-01-01 00:35 | Inpatient (IN) | payer MEDICAID, SELFPAY ==
[2021-12-31 23:16] VITALS: BMI 39.7
[2021-12-31 23:26] VITALS: BP 126/76; PULSE 102; O2SAT 97
[2021-12-31 23:28] VITALS: TEMP 36.4
[2022-01-01] VITALS (43 sets, daily range): BP systolic 85–138; BP diastolic 45–87; PULSE 75–164; RESP 16–18; TEMP 36.2–36.6; O2SAT 92–100
[2022-01-01] MEDS: Acetaminophen 500 MG Tablet 1000 MG PO ×2 (00:03→18:17)
[2022-01-01] MEDS: Lactated Ringers 500 ML 999 ML IV (00:48)
[2022-01-01 01:04] LABS: Absolute Neutrophil Count 10.8 X10^3/uL (2.0-7.7); Basophil# 0.03 X10^3/uL; Basophil% 0.2 % (0-1); Eosinophil# 0.02 X10^3/uL; Eosinophils% 0.2 % (0-5); Hemoglobin 11.7 g/dL (12.0-15.0); Lymphocyte % 10.7 % (19-41); Mean Corp Hgb Conc 31.6 g/dL (32-36); Mean Corpuscular Hgb 24.8 pg (27.0-32.0); Mean Corpuscular Volume 78.4 fL (81-99); Mean Platelet Vol. 10.3 fl (6.2-12.0); Monocyte# 0.76 X10^3/uL; Monocyte% 5.8 % (0-10); NRBC Flagged by Analyzer 0 % (0-5); Neutrophil % 82.5 % (47-70); POSITIVE MORPHOLOGY YES; Platelet Count 204 K/mm3 (150-450); RBC Distribution Width CV 24.8 % (11.6-14.6); RBC Distribution Width SD 66.8 fl (35.1-43.9); Red Blood Count 4.72 M/mm3 (4.2-5.4); White Blood Count 13.1 K/mm3 (4.4-11.0)
[2022-01-01 01:07] LABS: Differential Indicated SCAN CRITERIA MET
[2022-01-01] MEDS: Lactated Ringers 1,000 ML 200 ML IV (01:21)
[2022-01-01 01:25] LABS: Anisocytosis 3+
[2022-01-01] MEDS: fentaNYL-bupivacaine (epidural) 100 ML BAG EPIDURAL (01:49)
[2022-01-01] MEDS: Mag Hydrox/Al Hydrox/Simeth 30 ML UDC PO (02:56)
[2022-01-01] MEDS: Oxytocin 30 units/NS 500 ml 30 UNITS/500 ML IV.SOLN 334 UNITS IV (03:15)
--- NOTE | 2022-01-01 03:22 | HP.PCM.OB_ITS ---
HPI - General General Date of Admission: 01/01/22 HPI Narrative SHAISTA VANN, is a 26 @ 40 [id number] F who presents to L&D in active labor. Maternal Data Information ANGELA Calculator Estimated Delivery Date Method Current WG Current Estimate 12/29/21 Ultrasound #1 40w 3d PFSH PFSH Medical History History of depression Lab test positive for detection of COVID-19 virus Home Medications aspirin 81 mg tablet,delayed release 81 mg PO DAILY 12/04/21 [History Last Taken 12/31/21 07:30] Allergy/AdvReac Type Severity Reaction Status Date / Time No Known Allergies Allergy Verified 12/31/21 23:48 Family History Mother Hypertension Social History Smoking Status: Former smoker alcohol intake: never substance use type: does not use what type of physical activity do you participate in: none seatbelt use: always do you feel safe at home: Yes additional social history: rachelmerari Hong Both work at [employer] History 2 Elective abortions Hx Para 1 Spontaneous abortions Hx # Term Pregnancies Ectopic pregnancies Hx # Pregnancies Multiple births # of living children Past Pregnancies Del. Date Name GA/Weeks Outcome Route Bth Weight Infant Gen Labor Lgth Anesthesia Del Locatn Provider FOB Unknown 2017 Clemente 40 live - full term 8lbs Male e pidural [facility] Delivery Date: no complications Camila Gauthier Visit Details Expected Delivery Route/Plan Labor Preferences- CB/BF classes: no labor support person: Hal labor intervention preferences: pain management options preferred: epidural cut cord/dad catch: cord : may try PP control planned: BS discussed possible routes of delivery and associated risks: [] special requests: [] Plans covid status: counseled regarding risk of covid in vs vaccination and declined vaccination flu vaccine: declined tdap vaccine:given rhogam: na LARC form signed: yes movement and labor precautions reviewed. Problem list reviewed and updated with the most current plan of care details and appropriate orders placed. Relevant counseling for the gestational age provided. Continue routine care and follow up unless otherwise noted in visit notes/problem list details OB Flowsheet Initial Weight: 185 lb Date -?-?-?-?-?-?-?-?-?-?-?-?- EGA Weight BP Urine Prot -?-?-?-?-?-?-?-?-?-?-?-?- Glucose FHR FuHt Pres Dilation -?-?-?-?-?-?-?-?-?-?-?-?- Effaced St Visit Note 05/19/21 -?-?-?-?-?-?-?-?-?-?-?-?- 8w 0d 185 lb (+0 oz) -?-?-?-?-?-?-?-?-?-?-?-?- 160 -?-?-?-?-?-?-?-?-?-?-?-?- SM- CRL 2 cm con s with LMP 06/19/21 -?-?-?-?-?-?-?-?-?-?-?-?- 12w 3d 186 lb (+16 oz) 122/76 Negative -?-?-?-?-?-?-?-?-?-?-?-?- Negative 160 -?-?-?-?-?-?-?-?-?-?-?-?- SM- no vb lof giana owen, nipt today 07/10/21 -?-?-?-?-?-?-?-?-?-?-?-?- 15w 3d 126 lb (-59 lb) 102/72 Negative -?-?-?-?-?-?-?-?-?-?-?-?- Negative 160 -?-?-?-?-?-?-?-?-?-?-?-?- SM- n ovb lof sherly scussed desired sterilization after , discussed possible IUD. discussed carrier results plan testing for FOB 08/10/21 -?-?-?-?-?-?-?-?-?-?-?-?- 19w 6d 190 lb (+5 lb) 138/70 Negative -?-?-?-?-?-?-?-?-?-?-?-?- Negative 145 -?-?-?-?-?-?-?-?-?-?-?-?- SM- no vb crampi ng, co CRAIG. FOB getting tested today 09/04/21 -?-?-?-?-?-?-?-?-?-?-?-?- 23w 3d 195 lb 2 oz (+10 lb 2 oz) 120/68 Negative -?-?-?-?-?-?-?-?-?-?-?-?- Negative 140 -?-?-?-?-?-?-?-?-?-?-?-?- GP - work in for cramping. Pain not currently present. Resolves with rest. Consistent with round ligament pain. Reassurance provided. 09/07/21 -?-?-?-?-?-?-?-?-?-?-?-?- 23w 6d 199 lb (+14 lb) 130/80 Negative -?-?-?-?-?-?-?-?-?-?-?--?- Negative 159 24 -?-?-?-?-?-?-?-?-?-?-?-?- MH-No VB, LOF. Good FM. Declines flu vaccine. Glucose next visit 10/09/21 -?-?-?-?-?-?-?-?-?-?-?-?- 28w 3d 202 lb 4 oz (+17 lb 4 oz) 106/70 Negative -?-?-?-?-?-?-?-?-?-?-?-?- Negative 145 28 -?-?-?-?-?-?-?-?-?-?-?-?- SM- no vb lof go od fm no reuglar ctx 10/26/21 -?-?-?-?-?-?-?-?-?-?-?-?- 30w 6d 205 lb 4 oz (+20 lb 4 oz) 118/60 Trace -?-?-?-?-?-?-?--?-?-?-?-?- Negative 142 30 -?-?-?-?-?-?-?-?-?-?-?-?- MH-No VB, LOF. G ood FM. Backacke persistent. Saw chiropractor once and will again tonight. Enc keenan band, freq position changes. PT if chiro not helpful. 11/06/21 -?-?-?-?-?-?-?-?-?-?-?-?- 32w 3d 205 lb (+20 lb) 120/70 Negative -?-?-?-?-?-?-?--?-?-?-?-?- Negative 140 33 -?-?-?-?-?-?-?-?-?-?-?-?- SM- no vb lof go od fm no reuglar ctx 11/18/21 -?-?-?-?-?-?-?-?-?-?-?-?- 34w 1d 207 lb 4 oz (+22 lb 4 oz) 116/68 Trace -?-?-?-?-?-?-?-?-?-?-?-?- Negative 138 34 -?-?-?-?-?-?-?-?-?-?-?-?- -No VB, LOF. G ood FM. Hgb still 9, IV Fe infusion ordered. Risk, benefits, side effects bilat salpingectomy discussed. Title 19 consent signed. 12/04/21 -?-?-?-?-?-?-?-?-?-?-?-?- 36w 3d 212 lb 4 oz (+27 lb 4 oz) 110/78 Negative -?-?-?-?-?-?-?-?-?-?-?-?- Negative 135 Cephalic -?-?-?-?-?-?-?-?-?-?-?-?- JV- no lof, vagi nal bleeding, or dec fm. GBS collected. pt declines vag exam. needs growth us for h/o covid in . 12/11/21 -?-?-?-?-?-?-?-?-?-?-?-?- 37w 3d 212 lb 6 oz (+27 lb 6 oz) 118/62 Negative -?-?-?-?-?-?-?-?-?-?-?-?- Negative 135 37 -?-?-?-?-?-?-?-?-?-?-?-?- SM- no vb lof go od fm nor egular ctx 12/18/21 -?-?-?-?-?-?-?-?-?-?-?-?- 38w 3d 215 lb 2 oz (+30 lb 2 oz) 114/80 Negative -?-?-?-?-?-?-?-?-?-?-?-?- Negative 140 37 -?-?-?-?-?-?-?-?-?-?-?-?- JV- no lof, vagi nal bleeding or dec fm. pt wants pp tubal ligation. we discussed remote vs immediate tubal and possibility of being immediate is less likely due to staffing 12/25/21 -?-?-?-?-?-?-?-?-?-?-?-?- 39w 3d 218 lb 6 oz (+33 lb 6 oz) 112/78 Negative -?-?-?-?-?-?-?-?-?-?-?-?- Negative 140 38 Cephalic 1 -?-?-?-?-?-?-?-?-?-?-?-?- 0 -4 JV- no lof , vaginal bleeding, or dec fm. labor precautions discussed. plan for 41 week IOL. JV- no lof, vaginal bleeding , or dec fm. labor precautions discussed. plan for 41 week. IOL. py now prefers a remote Bilateral salpingectomy rather than PPTL. 12/31/21 -?-?-?-?-?-?-?-?-?-?-?-?- 40w 2d 217 lb (+32 lb) 120/80 Negative -?-?-?-?-?-?-?-?-?-?-?-?- Negative 137 38 Cephalic 2 -?-?-?-?-?-?-?-?-?-?-?-?- 70 -2 JV- pt is set up for IOL on Jah. Membranes stripped today 01/01/22 -?-?-?-?-?-?-?-?-?-?-?-?- 40w 3d 217 lb 3.2 oz (+32 lb 3.2 oz) 126/76 134/77 138/87 136/83 129/78 132/74 121/76 124/78 105/72 130/85 123/53 85/45 89/51 110/77 -?-?-?-?-?-?-?-?-?-?-?-?- -?-?-?-?-?-?-?-?-?-?-?-?- NST FHR Rate Baby A Baseline: 145 Variability:: Moderate Accelerations:: 15 x 15 Decelerations:: None NST Reactive:: Yes FHR Category:: Category I ROS Constitutional Constitutional: Denies change in weight, fatigue, fever(s), headache(s), poor appetite or weakness Eyes Eyes: Denies blurry vision, change in vision, seeing flashes or spots in vision ENT HEENT: Denies dizziness, headache(s), loss taste/smell or sore throat Cardiovascular Cardiovascular: Denies chest pain, dizziness, dyspnea, irregular heart rhythm, leg edema, palpitations, rapid heart rate or vomiting Respiratory/Chest Respiratory/Chest: Denies chest tightness, cough, dyspnea or breast pain Gastrointestinal Gastrointestinal: Denies abdominal pain, anorexia, constipation, cramping, diarrhea, hemorrhoids, vomiting or weight changes Genitourinary Genitourinary: Denies dysuria, flank pain, genital lesions, genital pain, urinary frequency or urinary urgency Musculoskeletal Musculoskeletal: Denies back pain, difficulty walking, joint pain, limited range of motion, muscle cramps or numbness Integumentary Integumentary: Denies lesions or unusual bruising Neurologic Neurologic: Denies abnormal movements, abnormal speech, dizziness, numbness, seizure-like activity or syncope Psychiatric Psychiatric: Denies anxiety, behavioral changes, change in appetite, change in libido, cognitive impairment, confusion, depression, difficulty concentrating, hallucinations or suicidal thoughts Endocrine Endocrinology: Denies excessive sweating, polydipsia or polyuria Hematologic/Lymphatic Hematologic/Lymphatic: Denies easy bleeding, easy bruising or lymphadenopathy Allergic/Immunologic Allergic/Immunologic: Denies itchy eyes, lip swelling, seasonal rhinorrhea, rhinitis, throat swelling, tongue swelling, eczemia, wheezing or asthma Vital Signs Vital Signs Vital Signs: 12/31/21 23:26 12/31/21 23:28 01/01/22 00:21 Temperature 97.5 F L Temperature Source Temporal Pulse Rate 102 H 104 H Blood Pressure 126/76 H BP Systolic 126 BP Diastolic 76 Pulse Ox 97 96 01/01/22 00:22 01/01/22 00:53 01/01/22 00:55 Temperature 97.5 F L Temperature Source Temporal Pulse Rate 104 H 102 H Blood Pressure 134/77 H BP Systolic 134 BP Diastolic 77 Pulse Ox 94 92 01/01/22 00:56 01/01/22 01:23 01/01/22 01:28 Temperature Temperature Source Pulse Rate 109 H 109 H Blood Pressure 138/87 H BP Systolic 138 BP Diastolic 87 Pulse Ox 96 99 96 01/01/22 01:29 01/01/22 01:33 01/01/22 01:36 Temperature Temperature Source Pulse Rate 99 105 H Blood Pressure 136/83 H 129/78 H BP Systolic 136 129 BP Diastolic 83 78 Pulse Ox 93 98 01/01/22 01:37 01/01/22 01:38 01/01/22 01:41 Temperature Temperature Source Pulse Rate 91 88 96 Blood Pressure 132/74 H BP Systolic 132 BP Diastolic 74 Pulse Ox 93 98 01/01/22 01:44 01/01/22 01:46 01/01/22 01:48 Temperature Temperature Source Pulse Rate 108 H 109 H 101 H Blood Pressure 121/76 H BP Systolic 121 BP Diastolic 76 Pulse Ox 94 99 01/01/22 01:51 01/01/22 01:53 01/01/22 01:56 Temperature Temperature Source Pulse Rate 108 H 107 H 106 H Blood Pressure 124/78 H 105/72 BP Systolic 124 105 BP Diastolic 78 72 Pulse Ox 100 01/01/22 01:58 01/01/22 02:01 01/01/22 02:03 Temperature Temperature Source Pulse Rate 120 H 75 124 H Blood Pressure 130/85 H BP Systolic 130 BP Diastolic 85 Pulse Ox 100 100 01/01/22 02:08 01/01/22 02:33 01/01/22 02:39 Temperature 97.6 F L Temperature Source Temporal Pulse Rate 109 H 91 81 Blood Pressure 123/53 H 85/45 L BP Systolic 123 85 BP Diastolic 53 45 Pulse Ox 100 01/01/22 02:40 01/01/22 03:21 Temperature Temperature Source Pulse Rate 81 91 Blood Pressure 89/51 L 110/77 BP Systolic 89 110 BP Diastolic 51 77 Pulse Ox Weight Weight: 217 lb 3.2 oz Body Mass Index (BMI) 39.7 Physical Exam Const alert, oriented x3, no apparent distress and healthy appearing General Appearance: cooperative; Negative for anxious HEENT normocephalic Face and Sinus: normal facial exam Eyes EOMs intact bilaterally and no scleral icterus General Eye: normal appearance of both eyes Neck full ROM and supple Lymph Lymphatic: no lymphadenopathy noted Chest Chest: abnormal inspection of the chest Resp normal respiratory effort Effort and Inspection: able to speak in complete sentences Cardio regular rate GI soft to palpation and non-tender Inspection: gravid Palpation: soft; Negative for tender external exam normal Back/Spine no CVA tenderness Extremity normal to inspection, full ROM and no clubbing, cyanosis or edema General Extremity: Negative for calf tenderness or edema Skin Lesions: no lesions Rashes: no rashes Psych mental status grossly normal Labs Labs Labs: Blood Type O POSITIVE Antibody Screen NEGATIVE Hct 37.0 % (37-47) Hgb 11.7 g/dL (12.0-15.0) L Obstetrics US Syphilis Total Ab Non-reactive Rubella IgG Antibody Reactive (Nonreactive) Hep Bs Antigen Non-Reactive (Nonreactive) Neisseria gonorrhoeae DNA (ANNE) Negative (Negative) HIV 1&2 Antibody Non-Reactive (Nonreactive) Glucose 1 Hr 50 gm 149 mg/dL (70-140) H Rhogam given: No Assessment & Plan (1) History of tetanus, diphtheria, and acellular pertussis booster vaccination (Tdap): COMMENT: 10/09/21 (2) Anemia affecting : QUALIFIERS: Trimester: third trimester Qualified Code(s): O99.013 - Anemia complicating , third trimester COMMENT: iron added.10/26 not taking and enc daily alternate PNV. Recheck CBC 11/18 HGB still 9: IV FE infusion ordered. (3) Abnormal glucose affecting : COMMENT: NL 3gtt (4) Cystic fibrosis carrier: COMMENT: FOB testing neg (5) History of depression: COMMENT: no meds in past. 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 11/01 (7) Obesity affecting : QUALIFIERS: Trimester: third trimester Qualified Code(s): O99.213 - Obesity complicating , third trimester COMMENT: 1 tm gct and encouraged healthy weight gain (8) Supervision of high-risk : QUALIFIERS: Trimester: third trimester Qualified Code(s): O09.93 - Supervision of high risk , unspecified, third trimester COMMENT: PRR ANGELA 12/29/21, girl, [facility] Clemente Hong (9) : QUALIFIERS: Weeks of gestation: 40 weeks Qualified Code(s): Z3A.40 - 40 weeks gestation of COMMENT: NIPT low risk carrier screen reviewed. anatomy nl PLAN: Patient presents IAL, plan expectant management for , pitocin/AROM PRN if needed. Pain management: plans epidural. GBS negative. Management of any complications: none I have reviewed the [facility] and made any clinically relevant updates. Charges/Coding Multi Select Codes Visit Charges Visit Charges: 05780 Init Hosp L3
--- NOTE | 2022-01-01 03:24 | EX.PCM.OBRPT ---
Maternal Data Information ANGELA Calculator Estimated Delivery Date Method Current Current Estimate 12/29/21 Ultrasound #1 40w 3d Vaginal Delivery Maternal Presentation Maternal Presentation: Active Labor Operative Information Date of Procedure: 01/01/22 Pre-Operative Diagnosis: @ 40 weeks 3 days Post-Operative Diagnosis: @ 40 weeks 3 days Surgery / Procedure Performed: Spontaneous Vaginal Delivery Type of Anesthesia: Epidural Drain: Galvan to straight drain Estimated Blood Loss: 100cc Findings Description of Procedure: Patient began pushing and delivered the head in the KATJA presentation. The head was delivered atraumatically . The anterior and posterior shoulders delivered without complication followed by the rest of the infant and the was placed on the maternal abdomen. Delayed cord clamping was employed for approximately 60 seconds. Cord was clamped and cut and gentle traction was applied to the cord and the placenta delivered spontaneously immediately following it was noted to be intact with three-vessel cord. The perineum and vagina were inspected and noted to have no laceration. EBL was 100 cc. Patient and infant tolerated delivery well. Presentation: Vertex Amniotic Membrane Rupture Type: Spontaneous Amniotic Fluid Description: Clear Placental Delivery Description: Spontaneous Placenta Disposition: [facility] Cord Vessel Description: 3 Vessels Cord Entanglement: None Infant A Gender: Female (1 minute): 8 (5 minute): 9 Delayed Cord Clamping: Yes Post Vaginal Delivery Medications Given After Delivery: IV Pitocin Episiotomy Description: None Laceration: None Complication Complications: None Multi Select Codes Urinary/Genital Urinary/Genital CPT Codes: 01241 Vaginal Delivery Only
--- NOTE | 2022-01-01 03:27 | PCM.DC ---
Discharge Instructions Diet Discharge Diet: No restrictions Activity Discharge Activity: Return to Normal Activity, May Not Drive (while taking narcotic pain medications.) and May Shower May resume sexual activity in: 4-6 weeks Dressing / Incision Call your doctor if your incision/area has: Continuous Slow Oozing, Sudden Increased Bleeding, Increased Pain/ Swelling, Increased Redness and Foul Smelling Discharge Follow Up Care Please Follow Up With: Diya August DO When: Call [phone] to make an appointment with your doctor in 6 weeks. If you had elevated blood pressure or 4th degree laceration, you will need to be seen in 2 weeks. Test Results: Test results from this visit will be discussed in further detail at your follow-up appointment, if applicable. Discharge Plan Admission Admit Date/Time: 01/01/22 00:35 Primary Reason for Your Visit: vaginal delivery Attending Provider: Diya August Primary Care Provider: Burton Collado Discharge Orders/Prescriptions Prescriptions: New ibuprofen 800 mg tablet 800 mg PO Q8H PRN (Reason: pain) 7 Days Qty: 30 RF: 0 Discontinued aspirin 81 mg tablet,delayed release (DR/EC) 81 mg PO DAILY RF: 0 Referrals / Follow Up: Burton Collado DO [Primary Care Provider] - Disposition Disposition (needs filled in before D/C Order can be placed): Home, Self Care
[2022-01-01] MEDS: Ibuprofen 600 MG Tablet PO ×2 (05:22→14:08)
[2022-01-01] MEDS: 0.9% Saline Lock 10 ML Syringe IV (05:59)
--- NOTE | 2022-01-01 07:10 | NURSING ---
bedside report given to Lyla Evans RN who is assuming care of pt at this time late entry pt charting due to pt care and high unit aquity
[2022-01-01] MEDS: Senna/Docusate Sodium 1 Tablet PO (14:08)
--- NOTE | 2022-01-01 15:40 | CASEMGMT ---
Social Work Assessment Labor and Delivery Unit Date of Referral: 01/01/2022 Time of Referral: 03:45 Referred By: Dr. Diya August Date of Intervention: 01/01/2022 Time of Intervention: 15:40 Reason for Referral: Mother of baby (MOB), Lynne Marx with history of depression (PPD). History obtained from: MOB, Father of baby (FOB), Hal Ly, chart, and nursing Household composition: MOB and FOB live in private home with their first child, Clemente Ly (3 years old) and now this , Ady Ly. Patient's parent/guardian status: MOB and FOB have been together for 10 years. was not planned but accepted. MOB states ?I always wanted a girl.? Medical History: MOB with a vaginal delivery at 40 weeks. MOB with appropriate care visits, starting at 8 weeks. Infant born on 01/01/2022 with apgars of 8 and 9 at 1min and 5min. Infant to follow with Dr. Collado in the community. Educational Status: Denies any issues with comprehension or understanding. Financial Status: Denies concerns. MOB and FOB both work outside of the home. MOB with time off work for maternity leave. Infant Supplies: MOB reports to have needed supplies for including a car seat and crib. Childcare/Caregiver(s): MOB plans to be primary caregiver for children until returning to work. Family assist with childcare. Clemente is currently with MOB?s sister. Transportation: Denies any issues/concerns. Programs/Agencies Involved: Active with [facility] and plans to call on Tuesday. Denies any other community resources. Children Services/Legal Issues: Denies any history of children services or legal concerns. Behavioral Health Issues: MOB reports history of depression with Clemente. MOB reports to have been able to work through depression on own and denies any history of suicidal thoughts, plans, or intents. MOB denies history of counseling for medication to management mental health. MOB reports to have positive family support. Substance Use History: Denies Family History: Maternal and Drug Screens: MOB with negative tox screen on 05/19/2021. No to screen obtained on admission. PHQ9: Did not trigger. Family/Social Stressors: Denies current family or social stressors. Support Systems: Reports support from FOB and extended family members. Depression and Anxiety/Shaken Baby/Safe Sleeping: MOB provided with information on depression and anxiety as well as shaken baby and safe sleeping. ASSESSMENT: Met with MOB, FOB and ?grandma? in room. Introduced self and dialysis social worker role. MOB agreeable to speak with this dialysis social worker. MOB provides verbal approval for this dialysis social worker to speak openly with FOB and ?grandma? present. MOB with positive and engaged affect. MOB holding during conversation and able to maintain care and attention to infant as well as conversation with this dialysis social worker. Patient denies any concerns on returning to the community. Support provided. PLAN: to discharge to home with MOB, FOB and older brother, Clemente. No other services requested or indicated. Kassy YARBROUGH, BEVERLY
[2022-01-02 00:45] VITALS: BP 119/62; PULSE 87; RESP 16; TEMP 36.4; O2SAT 96
[2022-01-02] MEDS: Ibuprofen 600 MG Tablet PO ×2 (01:01→08:14)
[2022-01-02 04:20] VITALS: BP 112/56; PULSE 85; RESP 18; TEMP 36.7; O2SAT 95
[2022-01-02 08:05] VITALS: BP 104/57; PULSE 73; RESP 18; TEMP 36.7; O2SAT 95
--- NOTE | 2022-01-02 08:44 | PCM.PN.OB ---
Subjective Subjective Patient doing well without complaints. Tolerating PO. Ambulating and voiding without difficulty. feeding well. Denies chest pain, shortness of breath, calf pain/swelling, fevers, chills, lightheadedness. Objective Data Objective Data Vital Signs: Vital Signs Temp Pulse Resp BP Pulse Ox 98.0 F 85 18 112/56 L 95 01/02/22 04:20 01/02/22 04:20 01/02/22 04:20 01/02/22 04:20 01/02/22 04:20 Oxygen Delivery Method Room Air Weight: 217 lb 3.2 oz Body Mass Index (BMI) 39.7 Intake & Output: Intake and Output for Last 24 Hours 12/31/21 01/01/22 01/02/22 23:59 23:59 23:59 Intake Total 1376.67 / 1376.67 Output Total 150 / 150 Balance 1226.67 / 1226.67 Lab / Micro Data Result Diagrams: 01/01/22 00:45 Micro: Microbiology 01/01/22 00:50 Nasal Secretion SARS-CoV-2 Antigen (Rapid) - Final ROS Constitutional Constitutional: Reports systems reviewed and no addt'l complaints, except as documented Cardiovascular Cardiovascular: Reports systems reviewed and no addt'l complaints, except as documented Respiratory/Chest Respiratory/Chest: Reports systems reviewed and no addt'l complaints, except as documented Gastrointestinal Gastrointestinal: Reports systems reviewed and no addt'l complaints, except as documented Physical Exam Const alert, oriented x3 and no apparent distress HEENT Head and Scalp: atraumatic Resp normal respiratory effort GI soft to palpation and non-tender Bimanual Exam - Vag & Uterus: uterus non-tender Uterus Palpation: uterus fundus firm (below Umbilicus) Assessment & Plan (1) Vaginal delivery: COMMENT: LIZ 40 PLAN: routine pp care
== END 2022-01-02 11:05 | disposition home or self-care (01) | DRG 560 ==
LOC: WPOUT 00:36 → WP 00:36
PROVIDERS: Admitting Provider Obstetrics & Gynecology; PCP Student in an Organized Health Care Education/Training Program; Visit Provider Obstetrics & Gynecology
DX: O99.214 Obesity complicating childbirth (principal); Z37.0 Single live birth; Z14.1 Cystic fibrosis carrier; Z79.82 Long term (current) use of aspirin; Z87.891 Personal history of nicotine dependence; Z3A.40 40 weeks gestation of pregnancy
CPT/HCPCS: 59025; 59050; 85025; 86850; 86900; 86901; 87426; 99218; J7120; A4216; G0378

== ENCOUNTER 2022-03-30 12:09 | Day surgery (SDC) | payer MEDICAID, SELFPAY ==
--- NOTE | 2022-03-29 10:11 | HP.PCM_ITS ---
History and Physical Date of Admission: 03/30/22 Date of Service: 03/24/22 MR#:[id number]:[id number]: SHAISTA VANNep #:[id number]:[id number] Provider:Dr. 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 Is patient in pain?: No Allergies No Known Allergies Allergy (Verified 03/24/22 09:14) Medications NK 03/24/22 [History Confirmed 03/24/22] Is last menstrual period known: No Post menopausal: No Patient : No : No [facility] History Anemia Former smoker History of depression Lab test positive for detection of COVID-19 virus Shortness of breath on exertion Wears contact lenses Wears glasses Family History Mother Hypertension Social History Smoking Status: Former smoker alcohol intake: never substance use type: does not use what type of physical activity do you participate in: none seatbelt use: always do you feel safe at home: Yes additional social history: kerry Hong Both work at [employer] BS Details: SHAISTA VANN is a 26 year old who presents for a pre-op exam for a scheduled bilateral salpingectomy. She signed a title 19 on 11/18/21. Pregancy History 2 Elective abortions Hx Para 1 Spontaneous abortions Hx # Term Pregnancies Ectopic pregnancies Hx # Pregnancies Multiple births # of living children 1 Past Pregnancies Del. Date Name GA/Weeks Outcome Route Bth Weight Gen Labor Lgth Anesthesia Del Locatn Provider FOB Unknown 2017 Clemente 40 live - full term 8lbs Male epidural [facility] 01/01/22 Wong 40 live - full term Female epidural [facility] Sajan Jones Delivery Date: no complications Camila Gauthier Delivery Date: 01/01/22 abruption in labor Analia Beckett Const ROS Unobtainable: All systems reviewed & are unremarkable except as noted in H Resp Resp: Reports system reviewed and no additional complaints, except as documented; Denies cough GI GI: Reports as per HPI Psych Psych: Reports system reviewed and no additional complaints, except as documented Exam Const General: cooperative, healthy appearing, comfortable and no acute distress Resp Effort & Inspection: normal respiratory effort Skin General: no rashes or lesions noted Psych Appearance: grossly normal Speech and Movement: speech and movement normal Coding Level of Care Code Off vis,est,level 3 Diagnoses Contraception management Z30.9 Contraceptive encounter type: unspecified Assessment and Plan Assessment and Plan (1) Contraception management: Status: Acute Qualifiers: Contraceptive encounter type: unspecified Qualified Code(s): Z30.9 - Encounter for contraceptive management, unspecified Comment: Considering BS:title 19 signed 11/18 Plan - Dr. Diya August DO: After discussing the patient's diagnosis and treatment plan options, patient wishes to proceed with surgical management. I have discussed with the patient the risks, benefits, and alternatives of the procedure which include but are not limited to risks of anesthesia, bleeding, infection, possible damage to bowel, bladder, or surrounding vasculature which could lead to additional surgery to evaluate any complications. Patient agrees to procedure and wishes to proceed. ACOG/uptodate references given for additional information regarding procedure. plan for laparoscopic bilateral salpingectomy 03/30/22. UPDATE- I have seen the patient and performed any clinically relevant updates to the history and physical exam. Diya August DO
[2022-03-29 17:58] LABS: Hematocrit 40.2 % (37-47); Mean Corp Hgb Conc 32.3 g/dL (32-36); Mean Corpuscular Volume 83.6 fL (81-99); Mean Platelet Vol. 10.5 fl (6.2-12.0); Platelet Count 284 K/mm3 (150-450); RBC Distribution Width CV 14.7 % (11.6-14.6); RBC Distribution Width SD 44.1 fl (35.1-43.9); Red Blood Count 4.81 M/mm3 (4.2-5.4); White Blood Count 5.9 K/mm3 (4.4-11.0)
[2022-03-30 12:42] LABS: Internal QC Validated? YES +Cl - CLEAR BKGD; Pregnancy, Urine Negative Negative
[2022-03-30 12:49] VITALS: BP 113/53; PULSE 58; RESP 16; TEMP 36.4; O2SAT 100; BMI 36.6
[2022-03-30] MEDS: Lactated Ringers 1,000 ML 15 ML IV (12:52)
--- NOTE | 2022-03-30 13:24 | PCM.DC ---
Discharge Instructions Diet Discharge Diet: No restrictions Activity Discharge Activity: Return to Normal Activity, May Not Drive (for two weeks or while taking narcotic pain medications.), May Shower and May Take a Tub Bath (in 7 days) May resume sexual activity in: 1 week Weight Bearing Status: Full weight bearing Dressing / Incision Call your doctor if you observe: Using more than 1 pad per hour, Shortness of breath, Chest pain and Uncontrolled pain Suture Line Care: Avoid Pulling/Pushing and Avoid Pinching/Bending Remove Dressing in: 1 week (if present) Cleanse incision/area with: Soap & Water and Keep Dressing Clean & Dry Follow Up Care Please Follow Up With: Diya August DO When: Call to make an appointment with your doctor for a follow up incision check in 1-2 weeks. Test Results: Test results from this visit will be discussed in further detail at your follow-up appointment, if applicable. Discharge Plan Admission Primary Reason for Your Visit: laparoscopic bilataeral tubal ligation Attending Provider: Tammy Sue Primary Care Provider: Burton Collado Consulting Providers: Diya August Discharge Orders/Prescriptions Prescriptions: New ibuprofen 800 mg tablet 800 mg PO Q8H PRN (Reason: pain) 7 Days Qty: 30 RF: 0 oxycodone-acetaminophen [Percocet] 5-325 mg tablet 1 tab PO Q6H PRN (Reason: pain) 3 Days Qty: 10 RF: 0 No Action NK RF: 0 Referrals / Follow Up: Burton Colldao DO [Primary Care Provider] - Disposition Disposition (needs filled in before D/C Order can be placed): Home, Self Care
--- NOTE | 2022-03-30 13:45 | FALS_PTH ---
PATIENT: SHAISTA VANN LOC: [facility] [place] U#:[id number] AGE/SX: 26/F ROOM: RE03/30/[address]: Dr. Tammy Sue MD : 1995 BED: DIS: 03/30/2022 SPEC #: [id number] RECD: 03/30/22 14:42 STATUS: TEAGAN REAura #: [id number] CODEY: 03/30/22 13:[address]: Tammy Sue DEPT: SURGICAL PATHOLOGY RECD BY: Aram Dumont ENTERED: 03/31/22 09:53 SP TYPE: FALL TUBES OTHR DR: DO Dr. Diya Raman DO Tissues: Fallopian tube Procedures: Surgery Specimen Level II HEADER OPERATION: Laparoscopic salpingectomy PRE-OP DIAGNOSIS: Sterilization TISSUE SUBMITTED: Bilateral fallopian tubes MICROSCOPIC DIAGNOSIS Bilateral fallopian tubes, salpingectomy: Bilateral fallopian tubes, no pathologic diagnosis. SJ:syed 04/01/2022 MICROSCOPIC DESCRIPTION Slides are reviewed. GROSS DESCRIPTION Received in fixative is one container labeled with the patient's name and designated bilateral fallopian tubes. The specimen consists of bilateral fallopian tubes including fimbrial ends each measuring 6 cm in length and 0.6 cm in diameter. The fallopian tubes are not identified as right or left. Sections reveal unremarkable cut surfaces. Car Top Bolter sections are submitted in two cassettes with each cassette containing one fallopian tube. / Efraín 03/31/2022 TC:4 CPT: 73857 x2
--- NOTE | 2022-03-30 14:01 | PCM.OPRPT ---
Report of Operation Date of Procedure: 03/30/22 Pre-Operative Diagnosis: desires sterility Post-Operative Diagnosis: desires sterility Surgery/Procedure Performed:: laparoscopic bilateral salpingectomy Description of Surgical Findings:: normal uterus, tubes, and ovaries Surgeon: Diya August juice mixer: Amelia Han Type of Anesthesia: General Anesthesiologist: Osman Wagoner Specimen's removed: bilateral fallopian tubes Drains: none Estimated Blood Loss (mL): 3 cc Fluids Replaced: 900cc Description of Procedure: Patient was taken in the operating room and was placed under general anesthesia was prepped and draped in normal sterile fashion in the dorsal lithotomy position. Bladder was drained of clear urine and SCDs were on preoperatively. Uterus was sounded and a uterine manipulator was placed after dilating. Attention was then paid to the abdominal portion of the procedure and the umbilicus was injected with 0.75% sensorcaine Next a 5 mm incision was made and a 5 mm laparoscopic port was inserted under direct visualization. The Abdomen was insufflated with CO2 gas and a Left lower quadrant 5 mm port was placed. A suprapubic mini trocar was then inserted next. The Uterus was well visualized and bilateral fallopian tubes and ovaries were identified and the infundibulopelvic ligaments were transected across using the LigaSure device followed by transecting across the mesosalpinx to the attachment to the uterine corpus bilaterally the tubes and ovaries were removed without complication. Excellent hemostasis was noted. Fallopian tubes were removed through the lower port sites without complication. Liver and upper abdomen were visualized notably within normal limits and no other gross abnormalities were seen in the abdomen. All instruments removed from the abdomen after gas was desufflated. Port sites were closed with 3-0 Monocryl Steri's and op sites were applied. All instruments removed from the vagina and patient was awoken and taken recovery in stable condition. Complications none Admit VTE Documentation VTE Present on Admission: No VTE Mechan Device Prophylaxis: SCD's VTE Pharm Prophylaxis ordered?: No Reason prophylaxis not ordered:: Treatment Not Indicated Multi Select Codes Urinary/Genital Urinary/Genital CPT Codes: 96163 Laproscopic BS/O
[2022-03-30 14:15] VITALS: BP 113/53; BP 117/76; PULSE 61; RESP 16; TEMP 36.3; O2SAT 95
[2022-03-30] MEDS: Ketorolac 30 MG/ML Syringe IV (14:19)
[2022-03-30 14:30] VITALS: BP 113/53; BP 115/78; PULSE 57; RESP 16; O2SAT 99
[2022-03-30 14:38] VITALS: BP 113/53; BP 116/77; PULSE 56; RESP 16; TEMP 36.4; O2SAT 99
== END 2022-03-30 15:14 | disposition home or self-care (01) ==
LOC: SDC 12:09 → AC 12:09
PROVIDERS: Obstetrics & Gynecology; PCP Student in an Organized Health Care Education/Training Program; Referring Provider Obstetrics & Gynecology; Visit Provider Obstetrics & Gynecology
PROC: (CPT 58661; principal; 2022-03-30 13:30)
DX: Z30.2 Encounter for sterilization (principal); Z87.891 Personal history of nicotine dependence
CPT/HCPCS: 58661; 36415; 81025; 85027; 86850; 86900; 86901; 87426; 88302; J7120; J2405

== ENCOUNTER → 2022-08-11 | Outpatient (CLI) | payer MEDICAID, SELFPAY | END | disposition home or self-care (01) | PROVIDERS: PCP Student in an Organized Health Care Education/Training Program; Referring Provider Otolaryngology Otolaryngology/Facial Plastic Surgery; Visit Provider Otolaryngology Otolaryngology/Facial Plastic Surgery | DX: J03.90 Acute tonsillitis, unspecified (principal) | CPT/HCPCS: 87070; 87077 ==

== ENCOUNTER → 2023-02-08 | Outpatient (CLI) | payer MEDICAID, SELFPAY | END | disposition home or self-care (01) | LOC: LABSPEC 13:29 | PROVIDERS: PCP Student in an Organized Health Care Education/Training Program; Visit Provider Obstetrics & Gynecology | DX: R10.2 Pelvic and perineal pain (principal) | CPT/HCPCS: 87086; 87088 ==

== ENCOUNTER → 2023-02-17 | Outpatient (CLI) | payer MEDICAID, SELFPAY ==
--- NOTE | 2023-02-17 15:34 | US_ITS ---
STUDY: ULTRASOUND OF THE FEMALE PELVIS - COMPLETE REASON FOR EXAM: Female, 27 years old. Mid pelvic pain. LMP: January 23, 2023. TECHNIQUE: Transabdominal and Transvaginal TECHNICAL QUALITY: Adequate. COMPARISON: None. FINDINGS: The uterus is anteverted and is tilted to the left side of the pelvis. The uterus measures 7.7 cm x 6.5 cm x 4.3 cm. There is a Nabothian cyst of the cervix. The endometrium measures 9 mm in thickness, and is hyperechoic. There is no demonstrated endometrial mass. There is no demonstrated myometrial mass. I.U.D. - The patient does not have an I.U.D. The right ovary is visualized. The right ovary measures 3.3 cm x 2.3 cm x 2.2 cm. There is no right ovarian cyst or ovarian mass. There is no visualized right adnexal mass or complex lesion. There is normal arterial and normal venous vascularity. The left ovary is visualized. The left ovary measures 3.6 cm x 2.3 cm x 1.9 cm. There is no left ovarian cyst or ovarian mass. There is no visualized left adnexal mass or complex lesion. There is normal arterial and normal venous vascularity. There is no fluid in the cul-de-sac. The pre void volume of the bladder was 64 ml. US/Pelvic w/ Transvaginal IMPRESSION: Normal female pelvis. Electronically Signed: Brenden Pepe MD at 10:40 EDT ,
== END | disposition home or self-care (01) ==
LOC: US 15:33
PROVIDERS: PCP Student in an Organized Health Care Education/Training Program; Referring Provider Obstetrics & Gynecology; Visit Provider Obstetrics & Gynecology
DX: R10.2 Pelvic and perineal pain (principal)
CPT/HCPCS: 76830; 76856